=== PATIENT | male | born 2000 | race Caucasian/White ===

== ENCOUNTER 2020-07-03 15:33 | Outpatient (CLI) | payer OTHER ==
[2020-07-04 01:28] LABS: SARS-CoV-2 PCR by NAA Not Detected (NotDetected)
== END 2020-07-03 15:34 | disposition home or self-care (01) ==
LOC: LABBT 15:33
PROVIDERS: ATTEND Surgery
DX: Z01.812 Encounter for preprocedural laboratory examination (principal); K64.8 Other hemorrhoids; Z20.822 Contact with and (suspected) exposure to COVID-19
CPT/HCPCS: 87635; U0003; U0005

== ENCOUNTER 2020-07-06 07:32 | Day surgery (SDC) | payer OTHER ==
[2020-07-04 16:26] VITALS: BMI 32.1
[2020-07-06] MEDS ORDERED: cefOXitin Sodium/Dextrose 2 GM/50 ML BAG ONE (08:01)
[2020-07-06] MEDS ORDERED: Lidocaine 2% Jelly 5 ML TUBE ONE (09:19)
[2020-07-06] MEDS ORDERED: Fentanyl 100 MCG/2 ML VIAL ONE ×2 (09:25→11:12)
[2020-07-06] MEDS ORDERED: Ondansetron PF 4 MG/2 ML Vial ONE (09:43)
[2020-07-06] MEDS ORDERED: Lidocaine 1% PF 5 ML VIAL ONE (09:43)
[2020-07-06] MEDS ORDERED: Rocuronium Bromide 10 MG/ML (10ML VIAL) ONE (09:43)
[2020-07-06] MEDS ORDERED: PROPOFOL 200 MG/20 ML VIAL ONE (09:43)
[2020-07-06] MEDS ORDERED: Glycopyrrolate 0.2 MG/ML 5 ML SYRINGE ONE (09:43)
[2020-07-06] MEDS ORDERED: Dexamethasone 20 MG/5 ML VIAL ONE (09:43)
[2020-07-06] MEDS ORDERED: Meperidine HCl/PF 25 MG/ML VIAL ONE (10:54)
[2020-07-06] MEDS ORDERED: HYDROcodone/Acetaminophen 5/325 mg Tablet ONE (12:07)
== END 2020-07-06 12:38 | disposition home or self-care (01) ==
LOC: SDC 07:32
PROVIDERS: ATTEND Surgery
PROC: 06BY3ZC Excision of Hemorrhoidal Plexus, Percutaneous Approach (ICD-10-PCS; principal; 2020-07-06)
DX: K64.8 Other hemorrhoids (principal)
CPT/HCPCS: 88305; J0694; J1100; J2175; J2405; J2704; J3010

== ENCOUNTER 2020-07-06 17:08 | Emergency (ER) | payer OTHER | END 2020-07-06 17:34 | disposition home or self-care (01) | LOC: ER/OP 17:08 | DX: N99.89 Other postprocedural complications and disorders of genitourinary system (principal) | CPT/HCPCS: 99281 ==